=== PATIENT | female | born 1970 | race Two or more races ===

== ENCOUNTER 2019-08-01 09:23 | Outpatient (CLI) | payer OTHER ==
[2019-08-23] MEDS ORDERED: ZETIA10 MG PO (11:35)
[2019-08-23] MEDS ORDERED: NORVASC5 MG PO (11:35)
[2019-08-23] MEDS ORDERED: COZAAR100 MG PO (11:35)
[2019-08-23] MEDS ORDERED: INVOKANA300 MG PO (11:36)
[2019-08-23] MEDS ORDERED: CRESTOR40 MG PO (11:36)
[2019-08-23] MEDS ORDERED: CARVEDILOL ER40 MG PO (11:36)
[2019-08-23] MEDS ORDERED: GLIPIZIDE XL10 MG PO (11:39)
[2019-08-23] MEDS ORDERED: REPAGLINIDE2 MG PO (11:40)
[2019-08-28] MEDS ORDERED: ULTRAM50 MG PO (13:43)
[2019-08-28] MEDS ORDERED: CELEBREX50 MG PO (13:43)
== END 2019-08-01 09:30 | disposition home or self-care (01) ==
LOC: RAD 09:23
PROVIDERS: ATTEND Orthopaedic Surgery
DX: M25.511 Pain in right shoulder (principal); M25.561 Pain in right knee

== ENCOUNTER → 2019-08-23 08:03 | Outpatient (CLI) | payer OTHER ==
[~2019-08-23 08:03] MED LIST: CARVEDILOL ER40 MG PO; CELEBREX50 MG PO; COZAAR100 MG PO; CRESTOR40 MG PO; GLIPIZIDE XL10 MG PO; INVOKANA300 MG PO; NORVASC5 MG PO; REPAGLINIDE2 MG PO; ULTRAM50 MG PO; ZETIA10 MG PO
== END | disposition home or self-care (01) ==
LOC: LAB 08:03
PROVIDERS: ATTEND Orthopaedic Surgery
DX: D64.89 Other specified anemias (principal); E88.89 Other specified metabolic disorders; D68.8 Other specified coagulation defects; N39.0 Urinary tract infection, site not specified; Z22.322 Carrier or suspected carrier of Methicillin resistant Staphylococcus aureus; Z76.89 Persons encountering health services in other specified circumstances; I49.8 Other specified cardiac arrhythmias; I10 Essential (primary) hypertension

== ENCOUNTER 2019-09-03 07:38 | Inpatient (IN) | payer OTHER | END 2019-09-05 16:09 | disposition home or self-care (01) | DRG 512 | LOC: CIR.AMB 07:38 → SURH 19:58 | PROVIDERS: ADMIT Orthopaedic Surgery; ATTEND Orthopaedic Surgery | PROC: 0PB94ZZ Excision of Right Clavicle, Percutaneous Endoscopic Approach (ICD-10-PCS; 2019-09-03) | PROC: 0LQ14ZZ Repair Right Shoulder Tendon, Percutaneous Endoscopic Approach (ICD-10-PCS; principal; 2019-09-03 09:00) | DX: M75.121 Complete rotator cuff tear or rupture of right shoulder, not specified as traumatic (principal); M75.41 Impingement syndrome of right shoulder; M65.811 Other synovitis and tenosynovitis, right shoulder; M89.8X8 Other specified disorders of bone, other site ==